=== PATIENT | female | born 1995 | race Caucasian/White ===

== ENCOUNTER 2018-02-24 09:26 | Emergency (ER) | payer OTHER ==
[2018-02-24 09:38] VITALS: BP 134/88
--- NOTE | 2018-02-24 10:02 | RAD ---
HISTORY: left foot COMPARISONS: April 11, 2015 VIEWS: 3, Frontal, lateral, and oblique views of the left foot FINDINGS: BONE DENSITY: Normal. BONES: There is a nondisplaced fracture of the proximal fifth metatarsal with articular extension. JOINTS: There is no arthropathy. ALIGNMENT: There is no dislocation. SOFT TISSUES: Unremarkable. OTHER FINDINGS: None. IMPRESSION: NONDISPLACED FRACTURE OF THE BASE OF THE FIFTH METATARSAL
--- NOTE | 2018-02-24 10:57 | UC ---
Lower Extremity/Ankle HPI - HPI Summary HPI Summary: Patient is a 22-year-old female presenting to the with a chief complaint of left lateral foot injury after inverting her foot while falling 4 days ago. She states she has been bearing weight, although with a mild amount of pain. She noticed bruising to the lateral side of the foot and now to the second and third toes. Denies any pain to the toes, but endorses pain just to the lateral side of the foot. Denies any ankle pain. Full range of motion without pain. Denies any other injuries during the fall. Pulses +2 intact bilaterally. Denies any temperature changes to the foot. - History of Current Complaint Chief Complaint: UCLowerExtremity Stated Complaint: foot injury Time Seen by Provider: 02/24/18 09:35 Hx Obtained From: Patient Hx Last Menstrual Period: 2 weeks ago ?: No Onset/Duration: Sudden Onset Severity Initially: Moderate Severity Currently: Moderate Pain Intensity: 0 Pain Scale Used: 0-10 Numeric Aggravating Factor(s): Standing, Ambulation Alleviating Factor(s): Rest Able to Bear Weight: No - Risk Factors Gout Risk Factors: Negative DVT Risk Factors: Negative Septic Arthritis Risk Factor: Negative - Allergies/Home Medications Allergies/Adverse Reactions: Allergies Allergy/AdvReac Type Severity Reaction Status Date / Time No Known Allergies Allergy Verified 02/24/18 09:38 Home Medications: Home Medications Ibuprofen 1 tab PO TID 02/24/18 [History Confirmed 02/24/18] PMH/Surg Hx/FS Hx/Imm Hx Previously Healthy: Yes - Surgical History Surgical History: Yes Surgery Procedure, Year, and Place: Gall Bladder removed. Tonsillectomy - Social History Occupation: Employed Full-time Lives: With Family Alcohol Use: Occasionally Substance Use Type: None Smoking Status (MU): Never Smoked Tobacco - Immunization History Most Recent Tetanus Shot: UTD Review of Systems Constitutional: Negative Skin: Negative Respiratory: Negative Motor: Negative Neurovascular: Negative Musculoskeletal: Arthralgia - lateral left foot Neurological: Negative Is Patient Immunocompromised?: No All Other Systems Reviewed And Are Negative: Yes Physical Exam Triage Information Reviewed: Yes Appearance: Well-Appearing, Well-Nourished Vital Signs: Initial Vital Signs Temp 98.3 F 02/24/18 09:32 Pulse 80 02/24/18 09:32 Resp 18 06/18/18 09:32 BP 134/88 02/24/18 09:32 Pulse Ox 99 02/24/18 09:32 Vital Signs Reviewed: Yes Eye Exam: Normal Eyes: Positive: Conjunctiva Clear Neck exam: Normal Neck: Positive: Supple Respiratory Exam: Normal Respiratory: Positive: Chest non-tender Musculoskeletal Exam: Normal Musculoskeletal: Positive: Strength Intact Neurological Exam: Normal Neurological: Positive: Alert Psychological: Positive: Normal Response To Family Skin Exam: Normal Lower Extremity Course/Dx - Course Course Of Treatment: Patient is evaluated for left foot injury. Foot x-ray obtained which shows base of the fifth metatarsal fracture consistent with a possible pseudo-Edge fracture. Cam boot and crutches given. Patient is to be nonweightbearing until follow-up this week with orthopedics. - Differential Dx/Diagnosis Provider Diagnoses: 5th metatarsal injury Discharge - Sign-Out/Discharge Documenting (check all that apply): Discharge/Admit/Transfer - Discharge Plan Condition: Stable Disposition: HOME Patient Education Materials: Foot Fracture in Adults (ED) Referrals: Bony Ugalde MD [Medical Doctor] - Abdirahman Maddox MD [Primary Care Provider] - Additional Instructions: Please follow up with orthopedics. Call today for an appt Non weight bearing Elevation Ice when needed ibuprofen 400mg three times daily - Billing Disposition and Condition Condition: STABLE Disposition: Home
== END 2018-02-24 10:33 | disposition home or self-care (01) ==
LOC: UCEAST 09:26
DX: S92.355A Nondisplaced fracture of fifth metatarsal bone, left foot, initial encounter for closed fracture (principal); X50.1XXA Overexertion from prolonged static or awkward postures, initial encounter; Y93.9 Activity, unspecified; Y92.9 Unspecified place or not applicable
CPT/HCPCS: 99213; G0463